=== PATIENT | female | born 1960 | race Caucasian/White ===

== ENCOUNTER 2018-12-23 11:08 | Observation (INO) ==
--- NOTE | 2018-12-23 11:47 | Pre Anesthesia Assessment ---
Date of Service December 23, 2018 Pre Sedation Assessment Vital Signs Temp Pulse Resp BP Pulse Ox 12/23/18 11:21 36.8 C 84 16 134/72 93 Cardiovascular + regular rate Respiratory + respiratory effort normal Pre-Sedation Airway Assessment Smoking Status: Former smoker Hx Sleep Apnea: Yes Short, Thick Neck: No Thyromental Distance: > or= 3.5 Finger Breadths Oral Cavity: + WNL Mallampati Class: III ASA: ASA3 NPO Status Date of Last Intake of Fluids: 12/22/18 Time of Last Intake of Fluids: 23:30 Date of Last Intake of Solid Food: 12/22/18 Time of Last Intake of Solid Foods: 23:30 Procedure Planning Contraindications for Sedation: none Current Medications Reviewed: Yes Notes The planned sedation has been discussed with the patient. Informed Consent was obtained. I have identified the patient, determined the appropriateness of sedation and have assessed the patient immediately prior to the procedure. All medicine(s) and interventions are by my order.
--- NOTE | 2018-12-23 11:47 | History & Physical Bridge Note ---
Date of Service December 23, 2018 History & Physical Bridge Note I have examined the patient, reviewed the History & Physical and in the interval since the performance of the History & Physical I have noted the following changes of clinical significance: no changes noted
[2018-12-23] MEDS ORDERED: fentaNYL citrate 100 MCG/2 ML VIAL ONE ×2 (12:12→13:10)
[2018-12-23] MEDS ORDERED: MIDAZOLAM HCL 5 MG/ML 1 ML VIAL ONE ×2 (12:12→13:10)
--- NOTE | 2018-12-23 14:38 | Operative Report ---
Post Operative Report Pre & Post Diagnosis SVT Post OP AVNRT Operation Date: 12/23/18 13:00 <No data on this case meets the specified criteria> Procedure Operation Date: 12/23/18 13:00 Actual Procedures p EPS + Ablation for SVT Flutter - DO tadeo Deleon LA Pacing (Add-On) - DO tadeo Deleon Ultrasound Vascular Access - Flor Vegas DO Surgeon Flor Vegas, Radio Board Operator none Estimated Blood Loss 5 Findings Consistent with Post-Op Diagnosis Specimens none Description of Procedure see official report I attest to the content of the Intraoperative Record and any orders documented therein. Any exceptions are noted below.
--- NOTE | 2018-12-23 14:38 | Post Anesthesia Assessment ---
Date of Service December 23, 2018 Post Sedation Assessment Vital Signs Temp Pulse Resp BP Pulse Ox 12/23/18 11:21 36.8 C 84 16 134/72 93 Recovery Score Activity: Moves 4 extremities Respiration: Deep Breath/Cough Circulation: +/-20% PreAnes Value Consciousness: Fully Awake Oxygen Saturation: > 92% On Room Air Discharge Sedation Level of Care: Fast Track Phase II Post Sedation Plan On clinical assessment, the patient appears to have tolerated the sedation without complications. Patient is recovering as anticipated. Patient will continue to be monitored by nursing and may be discharged when sedation discharge criteria are met per below protocol. Upon Completions of procedure and additional 15 minutes continue every 5 minute vital signs and the P.A.R. score; then discharge to a Phase I or Fast Track to Phase II per the following guidelines: * Discharge Patient to appropriate Phase II area if PAR is 8 or greater or return to pre- procedure baseline. The post - procedure orders will be as directed. * If PAR score is less than 8 or not return to pre-procedure baseline then patient will follow Phase I monitoring till PAR is reached for Phase II. The Phase I may be done in procedure room or may call to secure a Phase I area. * If naloxone or flumazenil are used for reversal, hold in Phase I for continued monitoring from when last reversal dose was given for a minimum of 60 minutes or longer pending the nurse and/or physician discretion of patient condition before discharge to Phase II. Please call the Sedation Physician to re-evaluate and complete post-note for discharge to Phase II area. Do NOT discharge from procedure sedation or Phase 1 until post- sedation evaluation note is complete by procedure /sedation MD Sedation Discharge Instructions to be given to the patient at discharge to home.
--- NOTE | 2018-12-23 14:46 | Discharge Summary ---
Date of Service December 23, 2018 Admission HPI Pt admitted with palpitations and SVT on zio patch Admission Exam Per Admitting Provider aaox3, NAD NC/AT, EOMI Supple No JVD Nrl S1/S2, No murmur CTA b/l no w/r/r soft nt/nd no LE edema b/l skin intact no focal deficits b/l groins soft no hematoma Principal Diagnosis Principal Diagnosis AVNRT s/p slow pathway modification Discharge Exam aaox3, NAD NC/AT, EOMI Supple No JVD Nrl S1/S2, No murmur CTA b/l no w/r/r soft nt/nd no LE edema b/l skin intact no focal deficits b/l groins no hematoma requiring O2 but not symptomatic Discharge Data Allergies Allergy/AdvReac Type Severity Reaction Status Date / Time No Known Allergies Allergy Unverified 12/22/18 14:49 Procedures Performed Operation Date: 12/23/18 13:00 Actual Procedures p EPS + Ablation for SVT Flutter - DO tadeo Deleon LA Pacing (Add-On) - DO tadeo Deleon Ultrasound Vascular Access - Flor Vegas DO Hospital Course (1) AVNRT (AV hermila re-entry tachycardia): Total Time Total Time Spent Total Time Spent (In Minutes): 30 Total Time Includes: Examination of the Patient, Medication Reconciliation and Other Discharge Plan Discharge Items Patient Disposition: Home - Self-Care Reason For Visit: EP STUDY Discharge Diagnosis: avnrt s/p ablation Condition: Good Discharge Goals: Improve function Activity: As commented below Activity Comment: no heavy lifting or squatting for 1 week Lifting: No more than 10 pounds Bathing: No limitations Sexual Activity: After one week Driving/Machine Use: Resume 1 day after discharge Non-emergency contact: Livestock Handler Call non-emergency contact if: you have any medication questions Follow-up/Referrals: Jasmyn Jama PA-C [Primary Care Provider] - Diet: Heart Healthy Addtl Provider Instructions: f/u 1 month in [place] office; referal to pulmonary and if you need a work letter contact my office Prescriptions: New metoprolol succinate 25 mg Tablet Extended Release 24 Hr 25 mg PO QAM Qty: 30 RF: 0 Continued omeprazole 40 mg Capsule,Delayed Release(Dr/Ec) 40 mg PO DAILY RF: 0 spironolactone 25 mg Tablet 12.5 mg PO DAILY RF: 0 calcium carbonate [Calcium 600] 600 mg calcium (1,500 mg) Tablet 1 tab PO DAILY RF: 0 venlafaxine 37.5 mg Tablet 37.5 mg PO Q OTHER DAY RF: 0 pravastatin 20 mg Tablet 20 mg PO DAILY RF: 0 furosemide 20 mg Tablet 40 mg PO DAILY RF: 0 Pulmicort Flexhaler 90 mcg/actuation Aerosol Powdr Breath Activated 2 puff Inhalation BID RF: 0 Discontinued sotalol 80 mg Tablet 80 mg PO Q12H RF: 0 Eliquis 5 mg Tablet 5 mg PO BID RF: 0 Stand-Alone Forms: [facility] Discharge Orders: Discharge Order (Routine); Ordered 12/24/18 Ordered By: Flor Vegas Admission Data Admit Date/Time: 12/23/18 14:22 Attending Provider: Flor Vegas Admit Provider: Flor Vegas Primary Care Provider: Jasmyn Jama Service: Telemetry
[2018-12-23] MEDS ORDERED: METOPROLOL SUCC 25MG EXT REL TAB PO STA (19:09)
[2018-12-23] MEDS: BUDESONIDE 90 MCG INH INH SCH (21:16)
[2018-12-24] MEDS ORDERED: SPIRONOLACTONE 25 MG TAB PO SCH (09:00)
[2018-12-24] MEDS ORDERED: VENLAFAXINE HCL XR 37.5 MG CAPXR PO SCH (09:00)
[2018-12-24] MEDS ORDERED: METOPROLOL SUCC 25MG EXT REL TAB PO SCH (09:00)
[2018-12-24] MEDS ORDERED: CALCIUM 600MG + VIT D 400 IU TAB PO SCH (09:00)
[2018-12-24] MEDS ORDERED: FUROSEMIDE 40 MG TAB PO SCH (09:00)
[2018-12-24] MEDS ORDERED: PRAVASTATIN SOD 20 MG TAB PO SCH (09:00)
[2018-12-24] MEDS ORDERED: PANTOprazole 40 MG TAB PO SCH (09:00)
[2018-12-24] MEDS: BUDESONIDE 90 MCG INH INH SCH (09:21)
--- NOTE | 2018-12-25 10:41 | Operative Report ---
Post Operative Report Pre & Post Diagnosis Operation Date: 12/23/18 13:00 <No data on this case meets the specified criteria> Procedure Operation Date: 12/23/18 13:00 Actual Procedures p EPS + Ablation for SVT Flutter - DO tadeo Deleon LA Pacing (Add-On) - DO tadeo Deleon Ultrasound Vascular Access - Flor Vegas DO Surgeon Flor Vegas DO Skiver Box Toe none Estimated Blood Loss 5 I attest to the content of the Intraoperative Record and any orders documented t herein. Any exceptions are noted below.
--- NOTE | 2018-12-29 14:56 | Operative Report ---
DATE OF OPERATION: 12/23/2018 PREOPERATIVE DIAGNOSIS: Supraventricular tachycardia. POSTOPERATIVE DIAGNOSIS: Atrioventricular hermila reentrant tachycardia, status post successful slow pathway modification. PROCEDURE: Electrophysiology study, 3D mapping of the His bundle and coronary sinus os, slow pathway radiofrequency modification, ultrasound-guided venous access. SURGEON: Flor Vegas DO. BODY MECHANIC APPRENTICE: None. ANESTHESIA: Monitored conscious sedation administered under my supervision by Donovan Peter. Start time 1215, end time 1432. A total of 7 mg of Versed, 175 mcg of fentanyl. INTRAVENOUS FLUIDS: 150 mL. URINE OUTPUT: Not applicable. SPECIMENS: None. FINDINGS: See below. BLOOD LOSS: Less than 5 mL. DRAINS: None. INDICATIONS: This is a 58-year-old female with a past medical history for SVT, on Zio patches, which was questionable as if it was an atrial flutter, so she actually underwent initiation for sotalol back in 07/2018 and has been on Eliquis, but a repeat Zio showed that she continues to have frequent short bursts of these episodes. 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 A repeat echo in 03/2016 showed 50%-54% (of note, her EF in 12/2015 was 22%), cardiogenic shock in 12/2015, normal cardiac cath in 12/2015, mild pulmonary hypertension, obesity and obstructive sleep apnea, on CPAP. Due to the frequent recurrent brief SVT, she was recommended for an electrophysiology study with possible ablation. CONSENT: Consent was obtained prior to the patient going into electrophysiology lab. The patient was informed of the risks, benefits, alternatives of procedure. Risks include but not limited to sudden cardiac , cardiac arrhythmias, cerebrovascular accident, myocardial infarction, injury to the blood vessels, chamber of the heart or the [place] electrical system where she would need a permanent pacemaker, bleeding and infection. The patient understood these risks and agreed to the procedure as planned, informed consent was obtained. DESCRIPTION OF THE PROCEDURE: The patient was brought into the electrophysiology lab in a fasting state. She was connected to continuous gatehouse attendant. A timeout was performed to ensure patient identity and procedure correctly. The patient was prepped and draped over bilateral groins in normal surgical standard fashion. 10 mL of 1% lidocaine were given in the bilateral groins for local anesthesia. Then, using a micropuncture kit and ultrasound guidance with the modified Seldinger technique, venous access was obtained in the following manner. The left femoral vein had a 6-Bah[place] sheath followed by a quadripolar catheter positioned in the right ventricular apex. A 7-[place] sheath followed by a quadripolar Biosense catheter positioned over the His bundle region. A 7-[place] sheath followed by a Decapolar Biosense DF curved coronary sinus catheter positioned out in the coronary sinus. The right femoral vein had a 6-[place] sheath followed by a Amy quadripolar catheter positioned in the high right atrium. A 6-[place] sheath that was eventually swapped out for an SR0 and had the ablation catheter. With those catheters all in position, electrophysiology study was performed with the following findings: Baseline intervals: Sinus cycle length 702 milliseconds, NM interval 154 milliseconds, QRS 102 milliseconds, QT 348 milliseconds, AH 48 milliseconds, HV 60 milliseconds. The AV Wenckebach was 330 milliseconds. When given extrastimuli from the high right atrium at 600/220, SVT was induced, the tachycardia cycle length was 376 milliseconds, the retrograde A was concentric and the VA time was 36 milliseconds. The fast pathway ERP was found to be 600/280. There were echoes at 600/290 and double echoes at 600/280. The right ventricular ERP was less than or equal to the right atrial ERP. The right atrial ERP was 600/220. The fast pathway ERP was 400/320. There were double echoes at 400/280. The right ventricular ERP was less than the right atrial ERP and the right atrial ERP was 400/200. I was able to re-induce the SVT at 400/220. The tachycardia cycle length was 354 milliseconds. VA time was 46 milliseconds and the retrograde atrial conduction was concentric. With ventricular pacing, there was a VAV response with continuation of the tachycardia. With this, we declared that the patient had typical AVNRT and after breaking the AVNRT with burst pacing the V, we then set up to do a slow pathway modification. The 6-Bahraini sheath on the right femoral vein was swapped out for an SR0 and then a 4 mm Biosense DF curved ablation catheter was inserted and we did 3D mapping of the His bundle and coronary sinus, then placing the catheter on the low right atrial septum, we gave a series of radiofrequency perez at 20 villagran with successful response with junctionals. After a few ablations, we then stopped. I removed the ablation catheter back into the IVC and then I did a post-ablation electrophysiology study with the following findings: Sinus cycle length 620 milliseconds, NM interval 164 milliseconds, QRS 100 milliseconds, QT 326 milliseconds, AH 52 milliseconds, HV 60 milliseconds, AV Wenckebach was 350 milliseconds. The fast pathway ERP was 600/280 and 400/280. The right ventricular ERP was 600/240 and 400/280. The right atrial ERP was 600/200 and less than or equal to 400/200. The right ventricular ERP was 500/240 and 400/240. I gave up to triples from the high right atrium at both a baseline pacing of [address] When I was giving atrial extrastimuli doubles, I did see 1 echo, but there was no sustained tachycardia, no double echos, so we deemed our ablation successful. All of the catheters removed from the body and then manual compression was used to establish hemostasis after pulling the sheaths. IMPRESSION: 1. 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 2. Dual AV hermila pathway. PLAN: Monitor the patient overnight, can stop her sotalol as well as her Eliquis. We will start her on metoprolol 25 mg daily. She is not to do any heavy lifting or squatting for 1 week and she will follow up in my [place] office in 1 month's time. I attest to the content of the Intraoperative Record and any orders documented therein. Any exceptions are noted below. NAOMY
== END 2018-12-24 10:34 | disposition home or self-care (01) ==
LOC: ASU 11:08 → 2E 11:08